=== PATIENT | female | born 1955 | race Caucasian/White ===

== ENCOUNTER 2018-09-05 11:06 | Day surgery (SDC) | payer OTHER ==
[2018-09-05 12:01] LABS: ADD MAN DIFF? NO
[2018-09-05 12:11] LABS: BASOPHIL # 0.1 10^3/ul (0.0-0.1); BASOPHILS % 0.7 % (0.0-2.0); EOSINOPHILS % 0.5 % (0.0-7.0); HEMATOCRIT 42.2 % (37.0-47.0); HEMOGLOBIN 13.8 g/dl (12.0-16.0); LYMPHOCYTES # 1.6 10^3/ul (0.8-2.9); LYMPHOCYTES % 20.9 % (15.0-51.0); MEAN CORPUSCULAR HEMOGLOBIN 29.1 pg (29.0-33.0); MEAN CORPUSCULAR HGB CONC 32.7 g/dl (32.0-37.0); MEAN CORPUSCULAR VOLUME 88.8 fl (82.0-101.0); MEAN PLATELET VOLUME 11.5 fl (7.4-10.4); MONOCYTE # 0.8 10^3/ul (0.3-0.9); MONOCYTES % 10.6 % (0.0-11.0); NEUTROPHIL # 5.1 10^3/ul (1.6-7.5); NEUTROPHILS % 66.8 % (39.0-77.0); PLATELET COUNT 236 10^3/UL (140-415); RED BLOOD COUNT 4.75 10^6/ul (4.20-5.40); RED CELL DISTRIBUTION WIDTH 12.7 % (11.5-14.5)
[2018-09-05 12:11] LABS: WHITE BLOOD COUNT 7.6 10^3/ul (4.8-10.8)
[2018-09-05] MEDS ORDERED: SOD CHLORIDE 0.9% 1,000 ML IV (12:30)
[2018-09-05 12:31] LABS: ALANINE AMINOTRANSFERASE 24 IU/L (13-69); ALBUMIN 4.8 g/dl (3.3-4.9); ALKALINE PHOSPHATASE 122 IU/L (42-121); ANION GAP 14 (5-13); ASPARTATE AMINO TRANSFERASE 32 IU/L (15-46); BILIRUBIN,INDIRECT 0.3 mg/dl (0-1.1); BILIRUBIN,TOTAL 0.3 mg/dl (0.2-1.3); BLOOD UREA NITROGEN 19 mg/dl (7-20); CALCIUM 9.9 mg/dl (8.4-10.2); CARBON DIOXIDE 27 mmol/L (21-31); CHLORIDE 102 mmol/L (97-110); CREATININE 0.72 mg/dl (0.44-1.00); Estimated GFR > 60 mL/min (>60); GLUCOSE 122 mg/dl (70-220); POTASSIUM 3.6 mmol/L (3.5-5.1); SODIUM 143 mmol/L (135-144)
[2018-09-05 13:14] LABS: INR 0.92; PROTIME 12.4 Sec (11.9-14.9)
[2018-09-05] MEDS ORDERED: LABETALOL HCL 20MG INJ IV (13:30)
[2018-09-05] MEDS ORDERED: HYDROmorphONE 1 MG/5 ML IV SYRINGE IV ×3 (13:30)
[2018-09-05] MEDS ORDERED: DIPHENHYDRAMINE 50 MG INJ IV (13:30)
[2018-09-05] MEDS ORDERED: EPHEDrine SULFATE 50 MG/5 ML SYG IV (13:30)
[2018-09-05] MEDS ORDERED: ONDANSETRON 4 MG INJ IV (13:30)
[2018-09-05] MEDS ORDERED: hydrALAzine 20 MG INJ IV (13:30)
[2018-09-05] MEDS ORDERED: MEPERIDINE 25 MG INJ IV (13:30)
[2018-09-05] MEDS ORDERED: OXYCODONE/ACETAMINOPHEN (5/325) TAB PO ×2 (13:30)
[2018-09-05] MEDS ORDERED: CEFAZOLIN 1 GM INJ (13:36)
[2018-09-05] MEDS ORDERED: PROPOFOL 20 ML (13:36)
[2018-09-05] MEDS ORDERED: FENTAnyl 50 MCG/ML VIAL (13:37)
[2018-09-05] MEDS ORDERED: METOCLOPRAMIDE 10 MG INJ (13:37)
[2018-09-05] MEDS ORDERED: MIDAZOLAM 1 MG/ML 2 ML INJ (13:37)
[2018-09-05] MEDS ORDERED: ONDANSETRON 4 MG INJ (13:37)
[2018-09-05] MEDS: CEFAZOLIN 2 GM/50 ML (PMX) 50 ML IVPB (13:59)
[2018-09-05 14:00] LABS: PARTIAL THROMBOPLASTIN TIME 40.5 Sec (23.0-35.0)
[2018-09-05] MEDS ORDERED: LIDOCAINE 1%/EPI 30 ML INJ (14:20)
[2018-09-05] MEDS: LIDOCAINE 1%/EPI 30 ML INJ INJ (14:30)
== END 2018-09-05 17:06 | disposition home or self-care (01) ==
LOC: SDS 11:06
DX: D17.23 Benign lipomatous neoplasm of skin and subcutaneous tissue of right leg (principal); D36.13 Benign neoplasm of peripheral nerves and autonomic nervous system of lower limb, including hip; R94.31 Abnormal electrocardiogram [ECG] [EKG]; I10 Essential (primary) hypertension; E78.5 Hyperlipidemia, unspecified
CPT/HCPCS: 14021; 71045; 80053; 85025; 85610; 85730; 88307; 93005